=== PATIENT | male | born 2005 | race Caucasian/White ===

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

== ENCOUNTER 2023-07-28 23:15 | Emergency (ER) | payer OTHER, SELFPAY | END 2023-07-29 00:08 | disposition home or self-care (01) | LOC: ERS 23:15 | DX: S46.911A Strain of unspecified muscle, fascia and tendon at shoulder and upper arm level, right arm, initial encounter (principal); S29.012A Strain of muscle and tendon of back wall of thorax, initial encounter; F17.210 Nicotine dependence, cigarettes, uncomplicated; X50.0XXA Overexertion from strenuous movement or load, initial encounter; Y99.0 Civilian activity done for income or pay | CPT/HCPCS: 99283 ==

== ENCOUNTER 2023-08-24 15:52 | Emergency (ER) | payer SELFPAY | END 2023-08-24 17:13 | disposition home or self-care (01) | LOC: ERS 15:52 | DX: J02.9 Acute pharyngitis, unspecified (principal); F17.210 Nicotine dependence, cigarettes, uncomplicated | CPT/HCPCS: 87081; 87430; 99283 ==

== ENCOUNTER 2024-08-01 09:05 | Emergency (ER) | payer SELFPAY | END 2024-08-01 10:26 | disposition home or self-care (01) | LOC: ERS 09:05 | DX: J02.9 Acute pharyngitis, unspecified (principal); F17.210 Nicotine dependence, cigarettes, uncomplicated | CPT/HCPCS: 87081; 87430; 99283 ==